=== PATIENT | male | born 1990 | race Caucasian/White ===

== ENCOUNTER 2019-07-10 23:11 | Emergency (ER) | payer OTHER, SELFPAY ==
[2019-07-11 00:30] LABS: Absolute Lymphocytes (CBC) 1.4 K/uL (0.7-4.9); Basophils % 0.5 % (0-1.3); Hematocrit 45.6 % (39.6-49.0); Lymphocytes % 20.2 % (15.3-44.8); MPV 9.8 fL (7.6-11.3); RBC Red Blood Cell Count 5.22 M/uL (4.33-5.43)
[2019-07-11 00:31] LABS: Protime INR 0.94
[2019-07-11 00:47] LABS: ALT/SGPT 76 U/L (12-78); AST/SGOT 40 U/L (15-37); Albumin 3.8 g/dL (3.4-5.0); Alkaline Phosphatase 98 U/L (45-117); BUN Blood Urea Nitrogen 10 mg/dL (7-18); Bicarbonate 30 mmol/L (21-32); Bilirubin Direct < 0.1 mg/dL (0-0.2); Bilirubin Total 0.2 mg/dL (0.2-1.0); Glucose Level 99 mg/dL (74-106); Potassium 4.1 mmol/L (3.5-5.1); Protein, Total 7.7 g/dL (6.4-8.2); Sodium Level 138 mmol/L (136-145)
[2019-07-11 01:42] LABS: Urine Blood NEGATIVE (NEG); Urine Glucose NEGATIVE (NEG); Urine Protein NEGATIVE (NEG); Urine pH 8.5 (5.0-7.0)
[2019-07-11 02:27] LABS: Barbiturates NEGATIVE (NEGATIVE); Benzodiazepines POSITIVE (NEGATIVE); Cocaine POSITIVE (NEGATIVE); METHAMPHETAM POSITIVE (NEGATIVE); Methadone NEGATIVE (NEGATIVE); Opiates NEGATIVE (NEGATIVE); Phencyclidine NEGATIVE (NEGATIVE); THC Cannibis POSITIVE (NEGATIVE)
[2019-07-11] MEDS ORDERED: ACETAMINOPHEN 325 MG TABLET ONE (04:52)
--- NOTE | 2019-07-11 07:04 | EKG ---
Test Date: 2019-07-10 Test Time: 23:32:40 Engraver Picture: KENDALL MEASUREMENT RESULTS: Intervals: Rate: 85 AR: 126 QRSD: 72 QT: 358 QTc: 426 [place]: P: 65 AR: 126 QRS: 61 T: 60 INTERPRETIVE STATEMENTS: Normal sinus rhythm Normal ECG No previous ECG available for comparison Electronically Signed On 07-11-19 07:03:38 CDT by Ildefonso Velez
--- NOTE | 2019-07-11 09:25 | ER ---
Nurse's Notes [facility] Name: Lew Castañeda Age: 28 yrs Sex: Male : 1990 Arrival Date: 07/10/2019 Time: 23:33 Bed 17 Private MD: Diagnosis: Suicidal ideations Presentation: 07/10 23:42 Presenting complaint: Patient states: I lost my job today and my girlfriend. I wanted jb4 to get really drunk so I did but then fell asleep. When I woke up I was sober and went to get more alcohol. Then I thought to myself Fuck it I'm just going to kill myself. I took 3 fake Xanax. I do not currently have a plan to hurt myself or anyone else. Transition of care: patient was not received from another setting of care. Onset of symptoms was July 10, 2019. Risk Assessment: Do you want to hurt yourself or someone else? Patient reports no desire to harm self or others. Initial Sepsis Screen: Does the patient meet any 2 criteria? No. Patient's initial sepsis screen is negative. Does the patient have a suspected source of infection? No. Patient's initial sepsis screen is negative. Care prior to arrival: None. 23:42 Method Of Arrival: Law Enforcement: Josue liu 23:42 Acuity: ROGER 2 jb4 23:43 Presenting complaint:. Historical: - Allergies: 23:48 PENICILLINS; wh - Home Meds: 23:48 Albuterol Nebulizer [Active]; wh - PMHx: 23:48 Asthma; - PSHx: 23:48 None; wh - Immunization history:: Adult Immunizations not up to date. - Social history:: Smoking status: Patient uses street drugs, marijuana. - Ebola Screening: : Patient negative for fever greater than or equal to 101.5 degrees Fahrenheit, and additional compatible Ebola Virus Disease symptoms Patient denies exposure to infectious person. Screenin:45 Abuse screen: Denies threats or abuse. Denies injuries from another. Nutritional screening: No deficits noted. Tuberculosis screening: No symptoms or risk factors identified. Fall Risk None identified. Assessment: 23:48 General: Appears in no apparent distress. Behavior is calm, cooperative, appropriate wh for age. Pain: Denies pain. Neuro: Level of Consciousness is awake, alert, obeys commands, Oriented to person, place, time, situation, Appropriate for age. Cardiovascular: Heart tones S1 S2. Respiratory: Airway is patent Respiratory effort is even, unlabored, Respiratory pattern is regular, symmetrical, Breath sounds are clear bilaterally. GI: Abdomen is flat, non-distended. : No signs and/or symptoms were reported regarding the genitourinary system. EENT: No signs and/or symptoms were reported regarding the EENT system. Derm: Skin is intact, is healthy with good turgor, Skin is pink, warm \T\ dry. normal. Musculoskeletal: Circulation, motion, and sensation intact. 07/11 00:32 Reassessment: Patient appears in no apparent distress at this time. No changes from previously documented assessment. Patient and/or family updated on plan of care and expected duration. Pain level reassessed. Patient is alert, oriented x 3, equal unlabored respirations, skin warm/dry/pink. 01:41 Reassessment: Patient appears in no apparent distress at this time. No changes from wh previously documented assessment. Patient and/or family updated on plan of care and expected duration. Pain level reassessed. Patient is alert, oriented x 3, equal unlabored respirations, skin warm/dry/pink. Patient denies pain at this time. 03:16 Reassessment: Patient appears in no apparent distress at this time. No changes from previously documented assessment. Patient and/or family updated on plan of care and expected duration. Pain level reassessed. Patient is alert, oriented x 3, equal unlabored respirations, skin warm/dry/pink. Patient denies pain at this time. 04:24 Reassessment: Patient appears in no apparent distress at this time. No changes from wh previously documented assessment. Patient and/or family updated on plan of care and expected duration. Pain level reassessed. Patient is alert, oriented x 3, equal unlabored respirations, skin warm/dry/pink. Pt watching Tv Patient denies pain at this time. 06:04 Reassessment: Patient appears in no apparent distress at this time. No changes from previously documented assessment. Patient and/or family updated on plan of care and expected duration. Pain level reassessed. Patient is alert, oriented x 3, equal unlabored respirations, skin warm/dry/pink. Pt watching Tv Patient denies pain at this time. 06:20 Reassessment: DOYLE Streeter [facility] requesting H\T\P and exclusionary be faxed, Judith Desk Sec wh notified. 07:00 Reassessment: Patient appears in no apparent distress at this time. No changes from tw2 previously documented assessment. Patient and/or family updated on plan of care and expected duration. Pain level reassessed. Patient is alert, oriented x 3, equal unlabored respirations, skin warm/dry/pink. Neuro: Level of Consciousness is awake, alert, obeys commands, Oriented to person, place, time, situation. Cardiovascular: Denies chest pain, shortness of breath, Heart tones S1 S2 Capillary refill < 3 seconds Patient's skin is warm and dry. Musculoskeletal: Circulation, motion, and sensation intact. Range of motion: intact in all extremities. 09:30 Reassessment: Patient appears in no apparent distress at this time. No changes from tw2 previously documented assessment. Patient and/or family updated on plan of care and expected duration. Pain level reassessed. Patient is alert, oriented x 3, equal unlabored respirations, skin warm/dry/pink. Psych: 00:33 Subjective: Patient's mood is sad. Objective: Patient is cooperative. Interventions: wh Removed personal items and placed in bag. Patient placed in hospital gown. Searched person for dangerous items. Urine collected and sent for urine drug test. Belonging list filled out. Suicide Risk Assessment: Sad Person Scale: Sex of patient: Male: Score 1 point. Age of patient: Score 1 point if patient 15-34. Depression: Score 0 point if signs of depression are not present. Previous Attempt: Score 0 point if patient has not previously attempted suicide. Substance Abuse: Score 1 point if patient abuses alcohol or drugs. Rational Thinking: Score 0 point if patient has rational thinking. Organized Plan: Score 0 if patient did not have an organized plan in place. Safety Checks: Personal items have been removed. Door is open. No visitors are present at this time. Patient uses marijuana. Commitment: Patient will be a voluntary commitment. Vital Signs: 07/10 23:42 BP 164 / 106; Pulse 84; Resp 16; Temp 98.5(TE); Pulse Ox 100% on R/A; Weight 95.25 kg jb4 (R); Height 5 ft. 11 in. (180.34 cm); Pain 4/10; 07/11 04:00 BP 136 / 94; Pulse 80; Resp 18; Temp 98.5; Pulse Ox 99% on R/A; wh 07:10 BP 144 / 87; Pulse 103; Resp 16; Temp 97.8(O); Pulse Ox 100% on R/A; dh3 07/10 23:42 Body Mass Index 29.29 (95.25 kg, 180.34 cm) jb4 ED Course: 07/10 23:33 Patient arrived in ED. wh 23:39 Jurgen Devine MD is Attending Physician. tw4 23:43 Lorna Keyes is Primary Nurse. wh 23:45 Triage completed. jb4 23:48 Patient has correct armband on for positive identification. Placed in gown. Bed in low wh position. Call light in reach. Side rails up X 1. Sitter at bedside. 23:48 Arm band placed on. wh 07/11 00:00 Safety checks: Items removed: yes. Door open/sign placed on door: yes. Family/friend oe present: no. Sitter present: Yes. 00:15 Safety checks: Items removed: yes. Door open/sign placed on door: yes. Family/friend oe present: no. Sitter present: Yes. 00:30 Safety checks: Items removed: yes. Door open/sign placed on door: yes. Family/friend oe present: no. Sitter present: Yes. 00:45 Safety checks: Items removed: yes. Door open/sign placed on door: yes. Family/friend oe present: no. Sitter present: Yes. 01:00 Safety checks: Items removed: yes. Door open/sign placed on door: yes. Family/friend oe present: no. Sitter present: Yes. 01:15 Safety checks: Items removed: yes. Door open/sign placed on door: yes. Family/friend oe present: no. Sitter present: Yes. 01:30 Safety checks: Items removed: yes. Door open/sign placed on door: yes. Family/friend oe present: no. Sitter present: Yes. 01:45 Safety checks: Items removed: yes. Door open/sign placed on door: yes. Family/friend oe present: no. Sitter present: Yes. 02:00 Safety checks: Items removed: yes. Door open/sign placed on door: yes. Family/friend oe present: no. Sitter present: Yes. 02:00 Faxed chart to [facility]. mo 02:15 Safety checks: Items removed: yes. Door open/sign placed on door: yes. Family/friend oe present: no. Sitter present: Yes. 02:30 Safety Checks: Personal items have been removed. The door is open or patient has been wh placed in a hallway bed/chair. There are no family/friend visitors at this time Sitter present at this time. 02:45 Safety Checks: Personal items have been removed. The door is open or patient has been wh placed in a hallway bed/chair. There are no family/friend visitors at this time Sitter present at this time. 03:00 Safety Checks: Personal items have been removed. The door is open or patient has been wh placed in a hallway bed/chair. There are no family/friend visitors at this time Sitter present at this time. 03:15 Safety Checks: Personal items have been removed. The door is open or patient has been wh placed in a hallway bed/chair. There are no family/friend visitors at this time Sitter present at this time. 03:30 Safety Checks: Personal items have been removed. The door is open or patient has been wh placed in a hallway bed/chair. There are no family/friend visitors at this time Sitter present at this time. 03:45 Safety Checks: Personal items have been removed. The door is open or patient has been wh placed in a hallway bed/chair. There are no family/friend visitors at this time Sitter present at this time. 04:00 Safety Checks: Personal items have been removed. The door is open or patient has been wh placed in a hallway bed/chair. There are no family/friend visitors at this time Sitter present at this time. 04:15 Safety Checks: Personal items have been removed. The door is open or patient has been wh placed in a hallway bed/chair. There are no family/friend visitors at this time Sitter present at this time. 04:30 Safety Checks: Personal items have been removed. The door is open or patient has been wh placed in a hallway bed/chair. There are no family/friend visitors at this time Sitter present at this time. 04:45 Safety Checks: Personal items have been removed. The door is open or patient has been wh placed in a hallway bed/chair. There are no family/friend visitors at this time Sitter present at this time. 05:00 Safety Checks: Personal items have been removed. The door is open or patient has been wh placed in a hallway bed/chair. There are no family/friend visitors at this time Sitter present at this time. 05:15 Safety Checks: Personal items have been removed. The door is open or patient has been wh placed in a hallway bed/chair. There are no family/friend visitors at this time Sitter present at this time. 05:30 Safety Checks: Personal items have been removed. The door is open or patient has been wh placed in a hallway bed/chair. There are no family/friend visitors at this time Sitter present at this time. 05:45 Safety Checks: Personal items have been removed. The door is open or patient has been wh placed in a hallway bed/chair. There are no family/friend visitors at this time Sitter present at this time. 06:00 Safety Checks: Personal items have been removed. The door is open or patient has been wh placed in a hallway bed/chair. There are no family/friend visitors at this time Sitter present at this time. 06:15 Safety Checks: Personal items have been removed. The door is open or patient has been wh placed in a hallway bed/chair. There are no family/friend visitors at this time Sitter present at this time. 06:17 Nurse to Nurse with [facility]. mo 06:24 Sent exclusionary to [facility]. mo 06:30 Safety Checks: Personal items have been removed. The door is open or patient has been wh placed in a hallway bed/chair. There are no family/friend visitors at this time Sitter present at this time. 06:45 Safety Checks: Personal items have been removed. The door is open or patient has been wh placed in a hallway bed/chair. There are no family/friend visitors at this time Sitter present at this time. 07:00 Safety checks: Items removed: yes. Door open/sign placed on door: yes. Family/friend dh3 present: no. Sitter present: Yes. 07:02 Attending Physician role handed off by Jurgen Devine MD kdr 07:02 Rasta Mahmood MD is Attending Physician. kdr 07:08 Primary Nurse role handed off by Lorna Keyes tw2 07:08 Annamarie Wilson, LSAHA is Primary Nurse. tw2 07:15 Safety checks: Items removed: yes. Door open/sign placed on door: yes. Family/friend dh3 present: no. Sitter present: Yes. 07:30 Safety checks: Items removed: yes. Door open/sign placed on door: yes. Family/friend dh3 present: no. Sitter present: Yes. 07:45 Safety checks: Items removed: yes. Door open/sign placed on door: yes. Family/friend dh3 present: no. Sitter present: Yes. 08:00 Safety checks: Items removed: yes. Door open/sign placed on door: yes. Family/friend dh3 present: no. Sitter present: Yes. 08:15 Safety checks: Items removed: yes. Door open/sign placed on door: yes. Family/friend dh3 present: no. Sitter present: Yes. 08:30 Safety checks: Items removed: yes. Door open/sign placed on door: yes. Family/friend dh3 present: no. Sitter present: Yes. 08:45 Safety checks: Items removed: yes. Door open/sign placed on door: yes. Family/friend dh3 present: no. Sitter present: Yes. 08:55 Diet: Patient given a regular meal tray. dh3 09:00 Safety checks: Items removed: yes. Door open/sign placed on door: yes. Family/friend dh3 present: no. Sitter present: Yes. 09:15 Safety checks: Items removed: yes. Door open/sign placed on door: yes. Family/friend dh3 present: no. Sitter present: Yes. 09:30 No provider procedures requiring assistance completed. IV discontinued, intact, tw2 bleeding controlled, No redness/swelling at site. Pressure dressing applied, discontinued 22 g from RIGHT ac. Administered Medications: 04:54 Drug: Tylenol 650 mg Route: PO; wh 06:59 Follow up: Response: No adverse reaction Outcome: 09:24 Discharge ordered by . kdr 09:31 Discharged to home ambulatory. tw2 09:31 Condition: stable 09:31 Instructed on discharge instructions. :33 Patient left the ED. tw2 Signatures: Rasta Mahmood MD MD [facility] Annamarie Wilson RN RN tw2 Baldomero Mak RN RN jb4 Isaias Desir Moriah mt Herrera, Deanna 3 Lorna Keyes Terrence, MD MD tw4 Corrections: (The following items were deleted from the chart) 00:54 00:42 Safety checks: Items removed: yes. Door open/sign placed on door: yes. oe Family/friend present: no. Sitter present: Yes. oe 01:04 00:54 Safety checks: Items removed: yes. Door open/sign placed on door: yes. oe Family/friend present: no. Sitter present: Yes. oe 01:30 01:10 Safety checks: Items removed: yes. Door open/sign placed on door: yes. oe Family/friend present: no. Sitter present: Yes. oe 08:35 07:45 Safety checks: Items removed: [email or web address]
--- NOTE | 2019-07-11 09:26 | EDPHYS ---
Physician Documentation [facility] Name: Lew Castañeda Age: 28 yrs Sex: Male : 1990 Arrival Date: 07/10/2019 Time: 23:33 Bed 17 Private MD: ED Physician Rasta Mahmood HPI: 07/11 06:06 This 28 yrs old Male presents to ER via Law Enforcement with complaints of tw4 Psych Problem. 06:06 The patient presents to the emergency department with suicide ideation, but the patient tw4 has no formulated plan. Historical: - Allergies: 07/10 23:48 PENICILLINS; wh - Home Meds: 23:48 Albuterol Nebulizer [Active]; wh - PMHx: 23:48 Asthma; wh - PSHx: 23:48 None; wh - Immunization history:: Adult Immunizations not up to date. - Social history:: Smoking status: Patient uses street drugs, marijuana. - Ebola Screening: : Patient negative for fever greater than or equal to 101.5 degrees Fahrenheit, and additional compatible Ebola Virus Disease symptoms Patient denies exposure to infectious person. ROS: 07/11 06:19 Constitutional: Negative for fever, chills, and weight loss, Cardiovascular: Negative tw4 for chest pain, palpitations, and edema, Respiratory: Negative for shortness of breath, cough, wheezing, and pleuritic chest pain, Abdomen/GI: Negative for abdominal pain, nausea, vomiting, diarrhea, and constipation, Back: Negative for injury and pain, MS/Extremity: Negative for injury and deformity, Skin: Negative for injury, rash, and discoloration, Neuro: Negative for headache, weakness, numbness, tingling, and seizure. Psych: Positive for depression, suicidal ideation, Negative for anxiety, suicidal ideation. Exam: 06:19 Constitutional: This is a well developed, well nourished patient who is awake, alert, tw4 and in no acute distress. Head/Face: Normocephalic, atraumatic. Chest/axilla: Normal chest wall appearance and motion. Nontender with no deformity. No lesions are appreciated. Cardiovascular: Regular rate and rhythm with a normal S1 and S2. No gallops, murmurs, or rubs. Normal PMI, no JVD. No pulse deficits. Respiratory: Lungs have equal breath sounds bilaterally, clear to auscultation and percussion. No rales, rhonchi or wheezes noted. No increased work of breathing, no retractions or nasal flaring. Abdomen/GI: Soft, non-tender, with normal bowel sounds. No distension or tympany. No guarding or rebound. No evidence of tenderness throughout. Back: No spinal tenderness. No costovertebral tenderness. Full range of motion. MS/ Extremity: Pulses equal, no cyanosis. Neurovascular intact. Full, normal range of motion. Neuro: Awake and alert, GCS 15, oriented to person, place, time, and situation. Cranial nerves II-XII grossly intact. Motor strength 5/5 in all extremities. Sensory grossly intact. Cerebellar exam normal. Normal gait. 06:19 Psych: Behavior/mood is pleasant, cooperative, Affect is flat, Oriented to person, place, only. Patient having thoughts of suicide. Denies suicidal plan. Vital Signs: 07/10 23:42 BP 164 / 106; Pulse 84; Resp 16; Temp 98.5(TE); Pulse Ox 100% on R/A; Weight 95.25 kg jb4 (R); Height 5 ft. 11 in. (180.34 cm); Pain /; 07/11 04:00 BP 136 / 94; Pulse 80; Resp 18; Temp 98.5; Pulse Ox 99% on R/A; wh 07:10 BP 144 / 87; Pulse 103; Resp 16; Temp 97.8(O); Pulse Ox 100% on R/A; dh3 07/10 23:42 Body Mass Index 29.29 (95.25 kg, 180.34 cm) jb4 MDM: 07/10 23:39 Patient medically screened. tw4 07/11 09:25 Data reviewed: vital signs, nurses notes, lab test result(s), radiologic studies. kdr Counseling: I had a detailed discussion with the patient and/or guardian regarding: the historical points, exam findings, and any diagnostic results supporting the discharge/admit diagnosis, lab results, the need for outpatient follow up. ED course: The patient denies any current SI. He has no prior suicide attempts. He states that he was just talking back to his mom and aunt when he became flippant and stated that he was going ot shoot himself in head. He sates that he has already sold his gun. The psychotherapist social worker who evaluated the patient did not feel there was any evidence current to warrant in-patient evaluation. The patient currently has a psychiatrist and was also given additional resources. 07/10 23:39 Order name: Acetaminophen; Complete Time: 07:06 tw4 07/10 23:39 Order name: Basic Metabolic Panel; Complete Time: 07:06 tw4 07/10 23:39 Order name: CBC with Diff; Complete Time: 07:06 tw4 07/10 23:39 Order name: ETOH Level; Complete Time: 07:06 tw4 07/10 23:39 Order name: Hepatic Function; Complete Time: 07:06 tw4 07/10 23:39 Order name: PT-INR; Complete Time: 07:06 tw4 07/10 23:39 Order name: Ptt, Activated; Complete Time: 07:06 4 07/10 23:39 Order name: Salicylate; Complete Time: 07:06 tw4 07/10 23:39 Order name: Urine Drug Screen; Complete Time: 07:06 tw4 07/10 23:39 Order name: EKG; Complete Time: 23:40 tw4 07/10 23:39 Order name: EKG - Nurse/Tech; Complete Time: 00:08 tw4 07/11 01:26 Order name: Urine Dipstick--Ancillary (enter results); Complete Time: 07:06 oe 07/11 07:03 Order name: Diet Regular; Complete Time: 07:04 dh3 07/10 23:39 Order name: IV Saline Lock; Complete Time: 00:08 tw4 07/10 23:39 Order name: Labs collected and sent; Complete Time: 00:08 tw4 07/10 23:39 Order name: Urine Dipstick-Ancillary (obtain specimen); Complete Time: 01:17 tw4 Administered Medications: 04:54 Drug: Tylenol 650 mg Route: PO; 06:59 Follow up: Response: No adverse reaction Disposition: 07/11/19 09:24 Discharged to Home. Impression: Suicidal ideations. - Condition is Stable. - Discharge Instructions: Suicidal Feelings: How to Help Yourself. - Medication Reconciliation Form, Thank You Letter, SBAR form form. - Follow up: Private Physician; When: 2 - 3 days; Reason: If symptoms return, Further diagnostic work-up, Recheck today's complaints, Continuance of care, Re-evaluation by your physician. - Problem is new. - Symptoms are resolved. Signatures: Dispatcher [employer] Rasta Abreu MD MD kdr Annamarie Wilson RN RN tw2 Lorna Keyes Terrence, MD MD tw4 Corrections: (The following items were deleted from the chart) 09:33 09:24 07/11/2019 09:24 Discharged to Home. Impression: Suicidal ideations. Condition is tw2 Stable. Forms are SBAR form, Medication Reconciliation Form, Thank You Letter, Antibiotic Education, Prescription Opioid Use. Follow up: Private Physician; When: 2 - 3 days; Reason: If symptoms return, Further diagnostic work-up, Recheck today's complaints, Continuance of care, Re-evaluation by your physician. Problem is new. Symptoms are resolved. kdr
[2019-07-11 09:44] VITALS: BP 144/87; TEMP 97.8; O2SAT 100
== END 2019-07-11 09:33 | disposition home or self-care (01) ==
LOC: ER 23:11
DX: R45.851 Suicidal ideations (principal); J45.909 Unspecified asthma, uncomplicated; Z88.0 Allergy status to penicillin
CPT/HCPCS: 36415; 80048; 80076; 80307; 80320; 80329; 81003; 85025; 85610; 85730; 93005; 99284

== ENCOUNTER 2021-03-04 19:37 | Emergency (ER) | payer SELFPAY ==
[2021-03-04] MEDS ORDERED: LEVALBUTEROL 1.25 MG/3 ML NEB ONE (20:49)
[2021-03-04] MEDS ORDERED: dexAMETHasone 10 MG/ML VIAL ONE (20:49)
--- NOTE | 2021-03-04 20:58 | ER ---
Nurse's Notes [facility] Name: Lew Castañeda Age: 30 yrs Sex: Male : 1990 Arrival Date: 03/04/2021 Time: 19:37 Bed 8 Private MD: Diagnosis: Unspecified asthma with (acute) exacerbation Presentation: 03/04 19:54 Chief complaint: Patient states: cough and SOB x 6 days. HX of asthma. Been using ca1 inhaler and breathing treatment with some relief. Covid testing yesterday, result was negative. Coronavirus screen: Client denies travel out of the [place] in the last 14 days. cough unrelated to allergies, shortness of breath, Client presents with at least one sign or symptom that may indicate coronavirus-19. Standard/surgical mask placed on the client. Provider contacted for isolation considerations. The client reports previous COVID testing was negative. Date of collection: March 03, 2021. Ebola Screen: Patient negative for fever greater than or equal to 101.5 degrees Fahrenheit, and additional compatible Ebola Virus Disease symptoms Patient denies exposure to infectious person. Patient denies travel to an Ebola-affected area in the 21 days before illness onset. No symptoms or risks identified at this time. Initial Sepsis Screen: Does the patient meet any 2 criteria? No. Patient's initial sepsis screen is negative. Does the patient have a suspected source of infection? No. Patient's initial sepsis screen is negative. Risk Assessment: Do you want to hurt yourself or someone else? Patient reports no desire to harm self or others. Onset of symptoms was March 04, 2021. 19:54 Method Of Arrival: Ambulatory ca1 19:54 Acuity: ROGER 3 ca1 Historical: - Allergies: 19:56 PENICILLINS; ca1 - PMHx: 19:56 Asthma; ca1 - PSHx: 19:56 None; ca1 - Immunization history:: Client reports having NOT received the Covid vaccine. Flu vaccine is not up to date. - Social history:: Smoking status: Patient denies any tobacco usage or history of. Screenin:00 Abuse screen: Denies threats or abuse. Nutritional screening: No deficits noted. ea Tuberculosis screening: No symptoms or risk factors identified. Fall Risk None identified. Assessment: 21:00 General: Appears in no apparent distress. Behavior is calm, cooperative, appropriate ea for age. Pain: Denies pain. Neuro: Level of Consciousness is awake, alert, obeys commands, Oriented to person, place, time. Cardiovascular: Patient's skin is warm and dry. Respiratory: Airway is patent Respiratory effort is even, unlabored, Respiratory pattern is regular, symmetrical. Derm: Skin is pink, warm \T\ dry. 21:28 Reassessment: Patient and/or family updated on plan of care and expected duration. Pain ea level reassessed. Patient is alert, oriented x 3, equal unlabored respirations, skin warm/dry/pink. Discharge instruction given to patient verbalized the understanding of instruction Patient states feeling better. Vital Signs: 19:54 BP 157 / 118; Pulse 109; Resp 18 S; Temp 99.1; Pulse Ox 98% on R/A; Weight 97.52 kg ca1 (R); Height 6 ft. 0 in. (182.88 cm) (R); 21:15 BP 150 / 86; Pulse 99; Resp 18; Pulse Ox 99% ; ea 19:54 Body Mass Index 29.16 (97.52 kg, 182.88 cm) ca1 ED Course: 19:37 Patient arrived in ED. bp1 19:56 Triage completed. ca1 19:56 Arm band placed on left wrist. ca1 20:22 Mo Santiago PA is PHCP. jmm 20:22 Christiano Boyer MD is Attending Physician. jmm 20:36 Abdelrahman Crawford RN is Primary Nurse. rr5 21:00 Patient has correct armband on for positive identification. Bed in low position. Call ea light in reach. 21:28 No provider procedures requiring assistance completed. Patient did not have IV access ea during this emergency room visit. Administered Medications: 20:36 Drug: Decadron (dexamethasone) 10 mg Route: IM; Site: right deltoid; rr5 21:15 Follow up: Response: No adverse reaction ea 20:36 Drug: Xopenex (levalbuterol) (3) 1.25 mg Route: Inhalation; rr5 Outcome: 20:57 Discharge ordered by . m 21:28 Discharged to home ambulatory. ea 21:28 Condition: stable 21:28 Discharge instructions given to patient, Instructed on discharge instructions, follow up and referral plans. medication usage, Demonstrated understanding of instructions, follow-up care, medications, Prescriptions given X 3. 21:29 Patient left the ED. ea Signatures: Mo Santiago PA PA jmm Antunez, Elena, RN RN Abdelrahman Lott, RN RN rr5 Aminta Senior RN RN ca1 Jerrica Blue
--- NOTE | 2021-03-04 20:58 | EDPHYS ---
Physician Documentation [facility] Name: Lew Castañeda Age: 30 yrs Sex: Male : 1990 Arrival Date: 03/04/2021 Time: 19:37 Bed 8 Private MD: ED Physician Christiano Boyer HPI: 03/04 20:26 This 30 yrs old Male presents to ER via Ambulatory with complaints of jmm Breathing Difficulty. 20:26 The patient has shortness of breath at rest. Onset: The symptoms/episode began/occurred jmm gradually, 6 day(s) ago. Duration: The symptoms are continuous. The patient's shortness of breath is aggravated by nothing, is alleviated by nothing. Associated signs and symptoms: Pertinent negatives: fever, loss of consciousness. This is a 30 year old male with a history of asthma that presents to the ED with complaints of cough, shortness of breath, wheezing beginning this Tuesday. States having to use albuterol every 2 hours. . Historical: - Allergies: 19:56 PENICILLINS; ca1 - PMHx: 19:56 Asthma; ca1 - PSHx: 19:56 None; ca1 - Immunization history:: Client reports having NOT received the Covid vaccine. Flu vaccine is not up to date. - Social history:: Smoking status: Patient denies any tobacco usage or history of. ROS: 20:26 Constitutional: Negative for fever, chills, and weight loss, Cardiovascular: Negative jmm for chest pain, palpitations, and edema. 20:26 Respiratory: Positive for cough, wheezing. 20:26 All other systems are negative. Exam: 20:26 Constitutional: This is a well developed, well nourished patient who is awake, alert, jmm and in no acute distress. Head/Face: atraumatic. Eyes: EOMI, no conjunctival erythema appreciated ENT: Moist Mucus Membranes Neck: Trachea midline, Supple Chest/axilla: Normal chest wall appearance and motion. Cardiovascular: Regular rate and rhythm. No edema appreciated 20:26 Back: Normal ROM Skin: General appearance color normal MS/ Extremity: Moves all extremities, no obvious deformities appreciated, no edema noted to the lower extremities Neuro: Awake and alert, normal gait Psych: Behavior is normal, Mood is normal, Patient is cooperative and pleasant 20:26 Respiratory: mild respiratory distress is noted, Respirations: labored breathing, that is mild, Breath sounds: wheezing: that is moderate, is heard diffusely. Vital Signs: 19:54 BP 157 / 118; Pulse 109; Resp 18 S; Temp 99.1; Pulse Ox 98% on R/A; Weight 97.52 kg ca1 (R); Height 6 ft. 0 in. (182.88 cm) (R); 21:15 BP 150 / 86; Pulse 99; Resp 18; Pulse Ox 99% ; ea 19:54 Body Mass Index 29.16 (97.52 kg, 182.88 cm) ca1 MDM: 20:22 Patient medically screened. [facility] 20:55 Data reviewed: vital signs, nurses notes. Counseling: I had a detailed discussion with greg the patient and/or guardian regarding: the historical points, exam findings, and any diagnostic results supporting the discharge/admit diagnosis, the need for outpatient follow up, to return to the emergency department if symptoms worsen or persist or if there are any questions or concerns that arise at home. ED course: Decreased wheezing on reauscultation . Patient advised to follow up with pcp and otherwise given strict return precautions. patient understood and agrees with the plan of care. . Administered Medications: 20:36 Drug: Decadron (dexamethasone) 10 mg Route: IM; Site: right deltoid; rr5 21:15 Follow up: Response: No adverse reaction ea 20:36 Drug: Xopenex (levalbuterol) (3) 1.25 mg Route: Inhalation; rr5 Disposition: 03/05 04:55 Co-signature as Attending Physician, Christiano Boyer MD. rn Disposition: 03/04/21 20:57 Discharged to Home. Impression: Unspecified asthma with (acute) exacerbation. - Condition is Stable. - Discharge Instructions: Asthma, Adult. - Prescriptions for Prednisone 20 mg Oral Tablet - take 3 tablet by ORAL route once daily for 5 days; 15 tablet. Albuterol Sulfate 2.5 mg /3 mL (0.083 %) Inhalation Solution for Nebulization - inhale 1 unit by NEBULIZATION route every 8 hours As needed; 1 box. Albuterol Sulfate 90 mcg/actuation - inhale 1-2 puff by INHALATION route every 4-6 hours; 1 Inhaler. - Medication Reconciliation Form, Thank You Letter, Antibiotic Education, Prescription Opioid Use, Work release form form. - Follow up: Private Physician; When: 2 - 3 days; Reason: Recheck today's complaints, Continuance of care, Re-evaluation by your physician. Signatures: Mo Santiago PA PA jmm Nieto, Roman, MD MD rn Antunez, Elena RN Abdelrahman Dorantes ea RN RN rr5 Aminta Senior RN RN ca1 Corrections: (The following items were deleted from the chart) 03/04 21:29 20:57 03/04/2021 20:57 Discharged to Home. Impression: Unspecified asthma with (acute) ea exacerbation. Condition is Stable. Forms are Medication Reconciliation Form, Thank You Letter, Antibiotic Education, Prescription Opioid Use. Follow up: Private Physician; When: 2 - 3 days; Reason: Recheck today's complaints, Continuance of care, Re-evaluation by your physician. greg
[2021-03-04 22:02] VITALS: TEMP 99.1
[2021-03-04 22:07] VITALS: BP 150/86; O2SAT 99
== END 2021-03-04 21:29 | disposition home or self-care (01) ==
LOC: ER 19:37
DX: J45.901 Unspecified asthma with (acute) exacerbation (principal); Z88.0 Allergy status to penicillin
CPT/HCPCS: J1100

== ENCOUNTER 2022-02-14 00:42 | Emergency (ER) | payer OTHER, SELFPAY ==
--- NOTE | 2022-02-14 05:40 | EDPHYS ---
Physician Documentation [facility] Name: Lew Castañeda Age: 31 yrs Sex: Male : 1990 Arrival Date: 02/14/2022 Time: 00:46 Bed 12 Private MD: ED Physician Christiano Boyer HPI: 02/14 00:56 This 31 yrs old Male presents to ER via Unassigned with complaints of Elbow Injury. rn 00:56 The patient or guardian complains of decreased range of motion, injury, pain. The rn complaints affect the left elbow and left wrist. Onset: The symptoms/episode began/occurred just prior to arrival. Modifying factors: The symptoms are alleviated by nothing. the symptoms are aggravated by movement, bending arm. Severity of symptoms: At their worst the symptoms were moderate, in the emergency department the symptoms are unchanged. The patient has not experienced similar symptoms in the past. The patient has not recently seen a physician. Pt reports at metal concert, fell, thinks outstretched arm, hurt his left elbow and left wrist. No other injury. . Historical: - Allergies: 01:11 PENICILLINS; fu - Home Meds: 01:11 Albuterol Inhl [Active]; fu - PMHx: 01:11 Asthma; fu - Immunization history:: Adult Immunizations not immunized, Client reports having NOT received the Covid vaccine. - Social history:: Smoking status: Patient reports the use of cigarette tobacco products, unknown Patient uses marijuana. - Family history:: not pertinent. - Hospitalizations: : No recent hospitalization is reported. ROS: 00:56 MS/Extremity: + left elbow and wrist pain/injury Skin: Negative for injury, rash, and rn discoloration, Neuro: Negative for headache, weakness, numbness, tingling, and seizure. Exam: 00:56 Constitutional: This is a well developed, well nourished patient who is awake, alert, rn and in no acute distress. MS/ Extremity: Pulses equal, no cyanosis. Neurovascular intact. Painful ROM left elbow with midl swelling. + mild tenderness distal radius. No gross deformity noted. Vital Signs: 01:02 BP 140 / 93; Pulse 109; Resp 18; Temp 98.5; Pulse Ox 99% on R/A; Pain 5/10; fu 02:30 BP 138 / 86; Pulse 95; Resp 16; Pulse Ox 98% on R/A; fu 04:35 BP 139 / 76; Pulse 98; Resp 16; Pulse Ox 99% on R/A; Pain 0/10; fu MDM: 00:49 Patient medically screened. rn 04:15 ED course: Delay due to radiology, xray machine down. rn 05:39 Differential diagnosis: closed fracture, contusion. Data reviewed: vital signs, nurses rn notes, and as a result, I will discharge patient. Counseling: I had a detailed discussion with the patient and/or guardian regarding: the historical points, exam findings, and any diagnostic results supporting the discharge/admit diagnosis, the need for outpatient follow up, to return to the emergency department if symptoms worsen or persist or if there are any questions or concerns that arise at home. Response to treatment: the patient's symptoms have mildly improved after treatment, and as a result, I will discharge patient. ED course: Pt is tired of waiting, still no radiology reads, has been here for unacceptable 5 hours waiting on radiology, will place in sling and dc home, will have day shift f/u xrays and contact patient. . 02/14 00:55 Order name: XRAY Elbow LEFT 3 view rn 02/14 00:55 Order name: XRAY Forearm LEFT rn 02/14 00:55 Order name: XRAY Wrist LEFT 3 view rn Administered Medications: No medications were administered Disposition Summary: 02/14/22 05:40 Discharge Ordered Location: Home rn Problem: new rn Symptoms: have improved rn Condition: Stable rn Diagnosis - Contusion of left elbow rn - Contusion of left wrist rn Followup: rn - With: Private Physician - When: As needed - Reason: Recheck today's complaints, Re-evaluation by your physician Discharge Instructions: - Discharge Summary Sheet rn - Elbow Contusion rn Forms: - Medication Reconciliation Form rn - Thank You Letter rn - Antibiotic wedding planning internship - Prescription Opioid Use rn - Work release form fu Signatures: Dispatcher [employer] Christiano Lemons MD MD rn Umadhay, Felix, RN RN fu
--- NOTE | 2022-02-14 05:40 | ER ---
Nurse's Notes [facility] Name: Lew Castañeda Age: 31 yrs Sex: Male : 1990 Arrival Date: 02/14/2022 Time: 00:46 Bed 12 Private MD: Diagnosis: Contusion of left elbow;Contusion of left wrist Presentation: 02/14 01:02 Chief complaint: Patient states: Injured left elbow due to fall. Coronavirus screen: fu Vaccine status: Patient reports being unvaccinated. had COVID last Jaubuary. Ebola Screen: No symptoms or risks identified at this time. Initial Sepsis Screen: Does the patient meet any 2 criteria? No. Patient's initial sepsis screen is negative. Does the patient have a suspected source of infection? No. Patient's initial sepsis screen is negative. Risk Assessment: Do you want to hurt yourself or someone else? Patient reports no desire to harm self or others. Onset of symptoms was February 14, 2022 at 00:00. 01:02 Method Of Arrival: Ambulatory fu 01:02 Acuity: ROGER 4 fu Triage Assessment: 01:06 General: Appears in no apparent distress. Behavior is calm, cooperative, appropriate fu for age. Pain: Complains of pain in left wrist and left elbow Pain currently is 5 out of 10 on a pain scale. Aggravated by movement. Musculoskeletal: Swelling present in left elbow. Historical: - Allergies: 01:11 PENICILLINS; fu - Home Meds: 01:11 Albuterol Inhl [Active]; fu - PMHx: 01:11 Asthma; fu - Immunization history:: Adult Immunizations not immunized, Client reports having NOT received the Covid vaccine. - Social history:: Smoking status: Patient reports the use of cigarette tobacco products, unknown Patient uses marijuana. - Family history:: not pertinent. - Hospitalizations: : No recent hospitalization is reported. Screenin:09 Abuse screen: Denies threats or abuse. Nutritional screening: No deficits noted. fu Tuberculosis screening: No symptoms or risk factors identified. Fall Risk None identified. Assessment: 01:07 General: Appears in no apparent distress. Behavior is calm, cooperative, appropriate fu for age, Denies fever, feeling ill, fatigue, chills. Pain: Complains of pain in left wrist and left elbow Pain currently is 5 out of 10 on a pain scale. Aggravated by movement. Neuro: Level of Consciousness is awake, alert, obeys commands, Oriented to person, place, time, situation, Gait is steady, Speech is normal, Facial symmetry appears normal. Respiratory: Respiratory effort is even, unlabored, Respiratory pattern is regular. Derm: swelling noted to left elbow. Musculoskeletal: Range of motion: limited in left wrist and left elbow. 02:00 Reassessment: No changes from previously documented assessment. Patient and/or family fu updated on plan of care and expected duration. Pain level reassessed. 03:00 Reassessment: Patient and/or family updated on plan of care and expected duration. Pain fu level reassessed. 04:15 Reassessment: Dr. Boyer inside the patient 's room. fu 05:11 Reassessment: Patient and/or family updated on plan of care and expected duration. Pain fu level reassessed. Patient is alert, oriented x 3, equal unlabored respirations, skin warm/dry/pink. Vital Signs: 01:02 BP 140 / 93; Pulse 109; Resp 18; Temp 98.5; Pulse Ox 99% on R/A; Pain 5/10; fu 02:30 BP 138 / 86; Pulse 95; Resp 16; Pulse Ox 98% on R/A; fu 04:35 BP 139 / 76; Pulse 98; Resp 16; Pulse Ox 99% on R/A; Pain 0/10; fu ED Course: 00:46 Patient arrived in ED. bp1 00:49 Christiano Boyer MD is Attending Physician. rn 00:49 Tab Hernandez, LASHA is Primary Nurse. fu 01:06 Triage completed. fu 01:09 Patient has correct armband on for positive identification. Call light in reach. Pulse fu ox on. NIBP on. 05:55 Sling applied to left arm. fu 06:07 No provider procedures requiring assistance completed. Patient did not have IV access fu during this emergency room visit. 06:08 XRAY Elbow LEFT 3 view In Process Unspecified. EDMS 06:08 XRAY Forearm LEFT In Process Unspecified. EDMS 06:08 XRAY Wrist LEFT 3 view In Process Unspecified. EDMS Administered Medications: No medications were administered Medication: 05:00 VIS not applicable for this client. fu Outcome: 05:40 Discharge ordered by . rn 06:08 Discharged to home ambulatory. fu 06:08 Condition: stable 06:08 Discharge instructions given to patient, Instructed on discharge instructions, follow up and referral plans. Demonstrated understanding of instructions, follow-up care, Prescriptions given X 0 06:10 Patient left the ED. fu Signatures: Dispatcher [employer] EDChristiano Roper MD MD rn David, Tab RN RN Jerrica Remy Corrections: (The following items were deleted from the chart) 01:06 00:58 Chief complaint: fu mairely
[2022-02-14 06:20] VITALS: TEMP 98.5
[2022-02-14 06:23] VITALS: BP 139/76; O2SAT 99
--- NOTE | 2022-02-15 16:07 | RAD REPORT ---
EXAM DESCRIPTION: Forearm Left CLINICAL HISTORY: PAIN COMPARISON: None FINDINGS: There is a nondisplaced fracture extending to the radial neck with slight cortical step of f. No additional fracture or dislocation. No retained radiopaque foreign body. IMPRESSION: Nondisplaced radial neck fracture. RECOMMENDATIONS: Electronically signed by: Paul Chacko MD 02/14/2022 7:26 AM CDT Due to temporary technical issues with the PACS/Fluency reporting system, reports are being signed by the in house radiologists without review as a courtesy to insure prompt reporting. The interpreting radiologist is fully responsible for the content of the report.
--- NOTE | 2022-02-15 16:20 | RAD REPORT ---
EXAM DESCRIPTION: Elbow Left 3 View CLINICAL HISTORY: 31 years Male PAIN TECHNIQUE: Three x-ray views of the left elbow were performed on 02/14/2022 at 3:04 AM. COMPARISON: None FINDINGS: There is a nondisplaced fracture through the left radial neck. No additional fractures are identified. The elbow joint is intact. There are no lytic or sclerotic bone lesions. There are no de generative or arthritic changes. There is mild soft tissue swelling surrounding the left elbow. No nahomy int effusion is appreciated. Bone mineralization is normal. IMPRESSION: Nondisplaced fracture through the left radial neck. There is mild soft tissue swelling s urrounding the left elbow. Electronically signed by: Aide Villagran DO 02/14/2022 7:23 AM CDT Due to temporary technical issues with the PACS/Fluency reporting system, reports are being signed by the in house radiologists without review as a courtesy to insure prompt reporting. The interpreting radiologist is fully responsible for the content of the report.
--- NOTE | 2022-02-15 16:21 | RAD REPORT ---
EXAM DESCRIPTION: Wrist Left 3 View CLINICAL HISTORY: PAIN COMPARISON: None FINDINGS: No acute fracture or dislocation. The radiocarpal and intercarpal joint spaces are preserv ed. No erosive changes noted. No chondrocalcinosis appreciated. IMPRESSION: No acute osseous abnormality of the wrist. RECOMMENDATIONS: Electronically signed by: Paul Chacko MD 02/14/2022 7:26 AM CDT Due to temporary technical issues with the PACS/Fluency reporting system, reports are being signed by the in house radiologists without review as a courtesy to insure prompt reporting. The interpreting radiologist is fully responsible for the content of the report.
== END 2022-02-14 06:10 | disposition home or self-care (01) ==
LOC: ER 00:42
DX: S50.02XA Contusion of left elbow, initial encounter (principal); S60.212A Contusion of left wrist, initial encounter; W01.0XXA Fall on same level from slipping, tripping and stumbling without subsequent striking against object, initial encounter; Y93.89 Activity, other specified; Y92.89 Other specified places as the place of occurrence of the external cause; Z88.0 Allergy status to penicillin; J45.909 Unspecified asthma, uncomplicated
CPT/HCPCS: 99284

== ENCOUNTER 2022-03-22 14:40 | Emergency (ER) | payer OTHER ==
[2022-03-22] MEDS ORDERED: NA CHLORIDE 0.9% 1,000 ML ONE (15:55)
[2022-03-22 16:02] LABS: Absolute Lymphocytes (CBC) 2.1 K/uL (0.7-4.9); Lymphocytes % 20.9 % (15.3-44.8); MCV 86.9 fL (80-100); MPV 8.9 fL (7.6-11.3); RBC Red Blood Cell Count 5.53 M/uL (4.33-5.43)
[2022-03-22 16:19] LABS: Albumin 4.1 g/dL (3.4-5.0); Potassium 4.1 mmol/L (3.5-5.1)
[2022-03-22 16:25] LABS: Bilirubin Total 0.4 mg/dL (0.2-1.0); Protein, Total 8.4 g/dL (6.4-8.2)
--- NOTE | 2022-03-22 17:12 | RAD REPORT ---
EXAM DESCRIPTION: CT - Stone Protocol - 03/22/2022 4:23 pm CLINICAL HISTORY: flank pain, kidney stone COMPARISON: No comparisons TECHNIQUE: Axial 3 mm thick images were obtained without oral or IV contrast. The [id number] span s the entirety of the system including uppermost abdomen and lung bases. All CT scans are performed using dose optimization technique as appropriate and may include automated exposure control or mA/KV adjustment according to patient size. FINDINGS: No hydronephrosis is present and no obstructing ureteral calculi. No suspicious renal mass es. Isodense masses and pyelonephritis are not excluded on a stone protocol CT scan. No significant a drenal finding. Urinary bladder is mostly contracted. A 2-3 mm calcification is present near the blad estrellita prostate interface. This is the dependent portion of the bladder. This may represent a small blad estrellita stone. Imaged portions of the liver, spleen and pancreas show no suspicious findings on non-contrast imaging . No gallbladder or biliary tree abnormality identified. No suspicious bowel findings. No direct or indirect evidence for appendicitis. 2 centimeter fat only umbilical hernia present. Fat extends into the origin of each inguinal canal. N o free air, free fluid or inflammatory stranding. No significant bony abnormality. IMPRESSION: No hydronephrosis or obstructing calculus identified. No perinephric stranding seen. Pun ctate 1 mm calcifications seen lower pole calices on the left. A 2-3 mm calcification is present suspected to be a bladder calculus. This could be chronic or a rece ntly passed ureteral stone. Isodense masses and pyelonephritis are not excluded on stone protocol technique.
--- NOTE | 2022-03-22 17:30 | ER ---
Nurse's Notes [facility] Name: Lew Castañeda Age: 31 yrs Sex: Male : 1990 Arrival Date: 03/22/2022 Time: 14:42 Bed 12 Private MD: Diagnosis: Kidney Stone/ Calculus in bladder Presentation: 03/22 15:03 Chief complaint: Patient states: pt reports lower abdominal pain that radiates to left lao flank. Coronavirus screen: Vaccine status: Patient reports receiving the 2nd dose of the covid vaccine. Ebola Screen: Patient denies travel to an Ebola-affected area in the 21 days before illness onset. Initial Sepsis Screen: Does the patient meet any 2 criteria? No. Patient's initial sepsis screen is negative. Does the patient have a suspected source of infection? No. Patient's initial sepsis screen is negative. Risk Assessment: Do you want to hurt yourself or someone else?. Onset of symptoms was March 22, 2022. 15:03 Method Of Arrival: Ambulatory lao 15:03 Acuity: ROGER 3 lao Triage Assessment: 15:04 General: Appears in no apparent distress. distressed, Behavior is calm, cooperative. lao Pain: Complains of pain in left mid back and abdomen. Historical: - Allergies: 15:04 PENICILLINS; lao - Home Meds: 15:04 Albuterol Inhl [Active]; lao - PMHx: 15:04 Asthma; lao - Immunization history:: Adult Immunizations up to date. - Social history:: Patient uses street drugs, marijuana. Screenin:45 Abuse screen: Denies threats or abuse. Nutritional screening: No deficits noted. jb4 Tuberculosis screening: No symptoms or risk factors identified. Fall Risk None identified. Assessment: 15:45 General: Appears in no apparent distress. comfortable, Behavior is calm, cooperative, jb4 appropriate for age. Pain: Complains of pain in left low back Pain radiates to left lower quadrant Pain currently is 5 out of 10 on a pain scale. Neuro: Level of Consciousness is awake, alert, obeys commands, Oriented to person, place, time, situation. Cardiovascular: Patient's skin is warm and dry. Respiratory: Airway is patent Respiratory effort is even, unlabored, Respiratory pattern is regular, symmetrical. Derm: Skin is intact, Skin is pink, warm \T\ dry. Musculoskeletal: Circulation, motion, and sensation intact. Range of motion: intact in all extremities. 17:09 Reassessment: Patient appears in no apparent distress at this time. Patient and/or jb4 family updated on plan of care and expected duration. Pain level reassessed. Patient is alert, oriented x 3, equal unlabored respirations, skin warm/dry/pink. 17:52 Reassessment: Patient appears in no apparent distress at this time. Patient and/or jb4 family updated on plan of care and expected duration. Pain level reassessed. Patient is alert, oriented x 3, equal unlabored respirations, skin warm/dry/pink. Kidney stone noted in urine specimen cup, provider is aware. Vital Signs: 15:03 BP 148 / 94; Pulse 97; Resp 18; Temp 98.1(O); Pulse Ox 98% ; Weight 106.59 kg; Height 5 lao ft. 11 in. (180.34 cm); 17:52 BP 147 / 104; Pulse 78; Resp 16; Pulse Ox 98% on R/A; jb4 15:03 Body Mass Index 32.78 (106.59 kg, 180.34 cm) ED Course: 14:42 Patient arrived in ED. jj6 15:04 Triage completed. lao 15:04 Arm band placed on. lao 15:06 Gurdeep Julian NP is PHCP. pm1 15:06 Rasta Mahmood MD is Attending Physician. pm1 15:25 Baldomero Mak, LASHA is Primary Nurse. jb4 15:45 Patient has correct armband on for positive identification. Bed in low position. Call jb4 light in reach. Side rails up X 1. 15:45 No provider procedures requiring assistance completed. Initial lab(s) drawn, by ri, jb4 sent to lab. Inserted saline lock: 20 gauge in right antecubital area, using aseptic technique. Blood collected. 16:25 Stone Protocol In Process Unspecified. EDMS 17:52 IV discontinued, intact, bleeding controlled, No redness/swelling at site. Pressure jb4 dressing applied. Administered Medications: 15:52 Drug: NS 0.9% 1000 ml Route: IV; Rate: 1 bolus; Site: right antecubital; jb4 17:51 Follow up: Response: No adverse reaction; IV Status: Order to discontinue infusion; IV jb4 Intake: 500ml Medication: 15:45 VIS not applicable for this client. jb4 Intake: 17:51 IV: 500ml; Total: 500ml. jb4 Outcome: 17:30 Discharge ordered by . pm1 17:53 Discharged to home ambulatory. jb4 17:53 Condition: stable 17:53 Discharge instructions given to patient, Instructed on discharge instructions, follow up and referral plans. Demonstrated understanding of instructions, follow-up care. 17:53 Patient left the ED. jb4 Signatures: Dispatcher [employer] EDWA Gurdeep Julian NP PIC[employer]CH[employer]IC pm1 Baldomero Mak, RN RN jb4 Ivett Banksj6 Juany Trinidad RN RN lao Corrections: (The following items were deleted from the chart) 17:53 17:52 Reassessment: Patient appears in no apparent distress at this time. Patient jb4 and/or family updated on plan of care and expected duration. Pain level reassessed. Patient is alert, oriented x 3, equal unlabored respirations, skin warm/dry/pink. jb4
--- NOTE | 2022-03-22 17:30 | EDPHYS ---
Physician Documentation [facility] Name: Lew Castañeda Age: 31 yrs Sex: Male : 1990 Arrival Date: 03/22/2022 Time: 14:42 Bed 12 Private MD: ED Physician Rasta Mahmood HPI: 03/22 16:00 This 31 yrs old Male presents to ER via Ambulatory with complaints of Flank Pain, Low pm1 Back Pain. 16:00 The patient complains of pain in the left low back. The pain radiates to the left lower pm1 quadrant. Onset: The symptoms/episode began/occurred this morning. Modifying factors: The symptoms are alleviated by nothing. the symptoms are aggravated by nothing. Associated signs and symptoms: Pertinent negatives: dysuria, fever, nausea, vomiting. Severity of pain: in the emergency department the pain has resolved. The patient has not experienced similar symptoms in the past. The patient has not recently seen a physician. waxing and waning pain. Historical: - Allergies: 15:04 PENICILLINS; lao - Home Meds: 15:04 Albuterol Inhl [Active]; lao - PMHx: 15:04 Asthma; lao - Immunization history:: Adult Immunizations up to date. - Social history:: Patient uses street drugs, marijuana. ROS: 16:00 Constitutional: Negative for fever, chills, and weight loss, Cardiovascular: Negative pm1 for chest pain, palpitations, and edema, Respiratory: Negative for shortness of breath, cough, wheezing, and pleuritic chest pain, Abdomen/GI: Negative for abdominal pain, nausea, vomiting, diarrhea, and constipation. 16:00 : Negative for injury, bleeding, discharge, and swelling, MS/Extremity: Negative for injury and deformity, Skin: Negative for injury, rash, and discoloration, Neuro: Negative for headache, weakness, numbness, tingling, and seizure. 16:00 Back: Positive for flank pain, on the left. Exam: 16:00 Constitutional: This is a well developed, well nourished patient who is awake, alert, pm1 and in no acute distress. Head/Face: Normocephalic, atraumatic. 16:00 Skin: Warm, dry with normal turgor. Normal color with no rashes, no lesions, and no evidence of cellulitis. MS/ Extremity: Pulses equal, no cyanosis. Neurovascular intact. Full, normal range of motion. 16:00 Cardiovascular: Exam negative for acute changes, Rate: normal, Rhythm: regular, Pulses: no pulse deficits are appreciated, Heart sounds: normal, normal S1and S2. 16:00 Respiratory: Exam negative for acute changes, respiratory distress, shortness of breath, Breath sounds: are clear throughout. 16:00 Abdomen/GI: Inspection: abdomen appears normal, Palpation: abdomen is soft and non-tender, in all quadrants. 16:00 Back: Exam negative for acute changes, CVA tenderness, is absent. 16:00 Neuro: Exam negative for acute changes, Orientation: is normal, Mentation: is normal, Motor: is normal, moves all fours. Vital Signs: 15:03 BP 148 / 94; Pulse 97; Resp 18; Temp 98.1(O); Pulse Ox 98% ; Weight 106.59 kg; Height 5 lao ft. 11 in. (180.34 cm); 17:52 BP 147 / 104; Pulse 78; Resp 16; Pulse Ox 98% on R/A; jb4 15:03 Body Mass Index 32.78 (106.59 kg, 180.34 cm) lao MDM: 15:21 Patient medically screened. pm1 17:28 Data reviewed: vital signs. Data interpreted: Pulse oximetry: on room air is 98 %. pm1 Interpretation: normal. Counseling: I had a detailed discussion with the patient and/or guardian regarding: the historical points, exam findings, and any diagnostic results supporting the discharge/admit diagnosis, lab results, radiology results, the need for outpatient follow up, to return to the emergency department if symptoms worsen or persist or if there are any questions or concerns that arise at home. 18:33 ED course: Patient with urine sample that has calculus in the urine cup. Patient with pm1 CT result prior to sample that showed the stone in the bladder. 03/22 15:56 Order name: Stone Protocol; Complete Time: 17:25 EDMS 03/22 15:57 Order name: CBC with Automated Diff; Complete Time: 16:53 EDMS 03/22 15:57 Order name: Comprehensive Metabolic Panel; Complete Time: 16:53 EDMS 03/22 15:28 Order name: IV Saline Lock; Complete Time: 15:38 pm1 03/22 15:28 Order name: Labs collected and sent; Complete Time: 15:38 pm1 Administered Medications: 15:52 Drug: NS 0.9% 1000 ml Route: IV; Rate: 1 bolus; Site: right antecubital; jb4 17:51 Follow up: Response: No adverse reaction; IV Status: Order to discontinue infusion; IV jb4 Intake: 500ml Disposition Summary: 03/22/22 17:30 Discharge Ordered Location: Home pm1 Problem: new pm1 Symptoms: have improved pm1 Condition: Stable pm1 Diagnosis - Kidney Stone/ Calculus in bladder pm1 Followup: pm1 - With: Emergency Department - When: As needed - Reason: Worsening of condition Followup: pm1 - With: Private Physician - When: 2 - 3 days - Reason: Recheck today's complaints, Continuance of care, Re-evaluation by your physician Discharge Instructions: - Discharge Summary Sheet pm1 - Kidney Stones pm1 - Dietary Guidelines to Help Prevent Kidney Stones pm1 Forms: - Medication Reconciliation Form pm1 - Thank You Letter pm1 - Antibiotic Education pm1 - Prescription Opioid Use pm1 - Work release form eb Signatures: Dispatcher [employer] EDKS Gudreep Julian, BATSHEVA METAL EXPEDITER pm1 Baldomero Mak, RN RN jb4 Juany Trinidad RN RN lao Corrections: (The following items were deleted from the chart) 17:51 15:28 Urine Dipstick-Ancillary ordered. pm1 jb4
[2022-03-22 18:27] VITALS: TEMP 98.1; O2SAT 98
[2022-03-22 18:28] VITALS: BP 147/104
== END 2022-03-22 17:53 | disposition home or self-care (01) ==
LOC: ER 14:40
DX: N20.0 Calculus of kidney (principal); R10.32 Left lower quadrant pain; J45.909 Unspecified asthma, uncomplicated; Z88.0 Allergy status to penicillin
CPT/HCPCS: 96361; 85025; 36415; 80053; 76377; 74176; 96360; 99284; J7030

== ENCOUNTER 2023-04-20 08:35 | Emergency (ER) | payer OTHER ==
[2023-04-20] MEDS ORDERED: predniSONE 20 MG TAB ONE (09:10)
[2023-04-20] MEDS ORDERED: LEVALBUTEROL 1.25 MG/3 ML NEB ONE (09:10)
[2023-04-20 09:49] LABS: SARS-CoV-2 Antigen Rapid Res Positive (Negative)
--- NOTE | 2023-04-20 09:58 | RAD REPORT ---
EXAM DESCRIPTION: Elis Single View04/20/2023 9:47 am CLINICAL HISTORY: Cough COMPARISON: none FINDINGS: The lungs appear clear of acute infiltrate. The heart is normal size IMPRESSION: No acute abnormalities displayed
--- NOTE | 2023-04-20 10:06 | EDPHYS ---
Physician Documentation [facility] Name: Lew Castañeda Age: 32 yrs Sex: Male : 1990 Arrival Date: 04/20/2023 Time: 08:35 Bed 20 Private MD: ED Physician Christiano Boyer HPI: 04/20 08:59 This 32 yrs old Male presents to ER via Ambulatory with complaints of Shortness Of rn Breath. 08:59 The patient has shortness of breath at rest. Onset: The symptoms/episode began/occurred rn last night. Duration: The symptoms are intermittent. The patient's shortness of breath is aggravated by nothing, is alleviated by inhaler. Associated signs and symptoms: Pertinent positives: This patient does not have any pertinent positive signs or symptoms associated with shortness of breath. Pertinent negatives: chest pain, productive cough, fever, hemoptysis. Severity of symptoms: At their worst the symptoms were moderate in the emergency department the symptoms are unchanged. The patient has experienced similar episodes in the past. Pt reports sob since last night, has asthma, started with nasal congestion, then became more anxious today, now feels like having a panic attack. No fever. . Historical: - Allergies: 08:58 PENICILLINS; me1 - Home Meds: 08:58 Albuterol Inhl [Active]; me1 - PMHx: 08:58 Hypertensive disorder; me1 - PSHx: 08:58 None; me1 - Immunization history:: Adult Immunizations up to date. - Social history:: Smoking status: Patient denies any tobacco usage or history of. - Family history:: not pertinent. - Hospitalizations: : No recent hospitalization is reported. ROS: 08:59 Constitutional: Negative for fever, chills, and weight loss, Cardiovascular: Negative rn for chest pain, palpitations, and edema, Respiratory: + sob Abdomen/GI: Negative for abdominal pain, nausea, vomiting, diarrhea, and constipation, MS/Extremity: Negative for injury and deformity, Skin: Negative for injury, rash, and discoloration, Neuro: Negative for headache, weakness, numbness, tingling, and seizure. Exam: 08:59 Constitutional: This is a well developed, well nourished patient who is awake, alert, rn appears anxious Head/Face: Normocephalic, atraumatic. ENT: No stridor Cardiovascular: Regular rate and rhythm. No pulse deficits. Respiratory: + mild tachypnea with mild wheezing bilaterally Skin: Warm, dry MS/ Extremity: Pulses equal, no cyanosis. Neuro: Awake and alert, GCS 15 Vital Signs: 08:56 BP 163 / 101; Pulse 99; Resp 17; Temp 98.4(O); Pulse Ox 100% on R/A; Weight 108.86 kg; me1 Height 5 ft. 11 in. ; Pain 0/10; 09:11 BP 152 / 109; Pulse 105; Resp 18; Pulse Ox 100% on R/A; ld1 10:26 BP 161 / 92; Pulse 98; Resp 18; Pulse Ox 100% on R/A; ld1 08:56 Body Mass Index 33.47 (108.86 kg, 180.34 cm) me1 08:56 Pain Scale: Adult me1 MDM: 08:38 Patient medically screened. rn 10:04 Differential diagnosis: asthma, Bronchitis pneumonia, Pneumothorax covid, flu. Data rn reviewed: vital signs, nurses notes, lab test result(s), radiologic studies, plain films, and as a result, I will discharge patient. Counseling: I had a detailed discussion with the patient and/or guardian regarding: the historical points, exam findings, and any diagnostic results supporting the discharge/admit diagnosis, lab results, radiology results, the need for outpatient follow up, to return to the emergency department if symptoms worsen or persist or if there are any questions or concerns that arise at home. Response to treatment: the patient's symptoms have markedly improved after treatment, and as a result, I will discharge patient. Special discussion: I discussed with the patient/guardian in detail that at this point there is no indication for admission to the hospital. It is understood, however, that if the symptoms persist or worsen the patient needs to return immediately for re-evaluation. Based on the history and exam findings, there is no indication for further emergent testing or inpatient evaluation. I discussed with the patient/guardian the need to see the primary care provider for further evaluation of the symptoms. 04/20 08:54 Order name: SARS RAPID; Complete Time: 09:52 rn 04/20 08:54 Order name: Flu; Complete Time: 10:01 rn 04/20 08:54 Order name: Strep rn 04/20 08:54 Order name: XRAY Chest (1 view); Complete Time: 10:01 rn Administered Medications: 09:09 Drug: predniSONE PO 60 mg Route: PO; vg1 09:11 Drug: Levalbuterol Inhalation 1.25 mg Route: Inhalation; ld1 Disposition Summary: 04/20/23 10:05 Discharge Ordered Location: Home rn Problem: new rn Symptoms: have improved rn Condition: Stable rn Diagnosis - SARS-associated coronavirus as the cause of diseases classified elsewhere rn - Mild intermittent asthma with (acute) exacerbation rn Followup: rn - With: Private Physician - When: As needed - Reason: Recheck today's complaints, Re-evaluation by your physician Discharge Instructions: - Discharge Summary Sheet rn - COVID-19 rn - 10 Things You Can Do to Manage Your COVID-19 Symptoms at Home - [facility] (04/03/2021) rn - Viral Illness, Adult rn Forms: - Work release form bd - Medication Reconciliation Form rn - Thank You Letter rn - Antibiotic pattern duplicator - Prescription Opioid Use rn - Patient Portal Instructions rn Prescriptions: - albuterol sulfate 90 mcg/actuation Inhalation HFA Aerosol Inhaler - inhale 2 inhalation by INHALATION route every 4 to 6 hours as needed for rn shortness of breath or wheezing; 1 unit; Refills: 0, Product Selection Permitted - Prednisone 20 mg Oral Tablet - take 3 tablets by ORAL route once daily for 5 days; 15 tablet; Refills: 0, rn Product Selection Permitted Signatures: Dispatcher [employer] EDChristiano Roper MD MD rn Garcia, Victoria RN RN vg1 Jerilyn Iglesias RN RN ld1 Katarina Bui, RN RN me1 Corrections: (The following items were deleted from the chart) 08:59 08:58 PMHx: Asthma; me1 me1
--- NOTE | 2023-04-20 10:06 | ER ---
Nurse's Notes [facility] Name: Lew Castañeda Age: 32 yrs Sex: Male : 1990 Arrival Date: 04/20/2023 Time: 08:35 Bed 20 Private MD: Diagnosis: SARS-associated coronavirus as the cause of diseases classified elsewhere;Mild intermittent asthma with (acute) exacerbation Presentation: 04/20 08:56 Chief complaint: Patient states: last night he developed some nasal congestion and sob me1 that was not resolved by his inhaler or nebulizer. Reports hx of asthma. Coronavirus screen: Vaccine status:. Ebola Screen: No symptoms or risks identified at this time. Initial Sepsis Screen: Does the patient meet any 2 criteria? No. Patient's initial sepsis screen is negative. Does the patient have a suspected source of infection? No. Patient's initial sepsis screen is negative. Risk Assessment: Do you want to hurt yourself or someone else? Patient reports no desire to harm self or others. Onset of symptoms was April 19, 2023. 08:56 Method Of Arrival: Ambulatory me1 08:56 Acuity: ROGER 4 me1 Triage Assessment: 08:58 General: Appears comfortable, Behavior is cooperative, appropriate for age, restless. me1 Pain: Denies pain. Neuro: Level of Consciousness is awake, alert, obeys commands, Oriented to person, place, time, situation. Cardiovascular: Capillary refill < 3 seconds Patient's skin is warm and dry. Respiratory: Reports shortness of breath since last night. Respiratory effort is even, unlabored, Respiratory pattern is regular, symmetrical. 10:27 Respiratory: the patient has mild shortness of breath. ld1 Historical: - Allergies: 08:58 PENICILLINS; me1 - Home Meds: 08:58 Albuterol Inhl [Active]; me1 - PMHx: 08:58 Hypertensive disorder; me1 - PSHx: 08:58 None; me1 - Immunization history:: Adult Immunizations up to date. - Social history:: Smoking status: Patient denies any tobacco usage or history of. - Family history:: not pertinent. - Hospitalizations: : No recent hospitalization is reported. Screenin:11 [facility] ED Fall Risk Assessment (Adult) History of falling in the last 3 months, ld1 including since admission No falls in past 3 months (0 pts). Abuse screen: Denies threats or abuse. Denies injuries from another. Nutritional screening: No deficits noted. Tuberculosis screening: No symptoms or risk factors identified. Assessment: 09:11 General: Appears in no apparent distress. comfortable, Behavior is calm, cooperative, ld1 appropriate for age. Pain: Denies pain. Neuro: Level of Consciousness is awake, alert, obeys commands, Oriented to person, place, time, situation. Cardiovascular: Capillary refill < 3 seconds Patient's skin is warm and dry. Rhythm is sinus rhythm. Respiratory: Reports shortness of breath at rest on exertion Airway is patent Respiratory effort is even, unlabored, Breath sounds are clear bilaterally. GI: Abdomen is round non-distended. : No signs and/or symptoms were reported regarding the genitourinary system. EENT: No signs and/or symptoms were reported regarding the EENT system. Derm: No signs and/or symptoms reported regarding the dermatologic system. Musculoskeletal: No signs and/or symptoms reported regarding the musculoskeletal system. 10:26 Reassessment: Patient appears in no apparent distress at this time. No changes from ld1 previously documented assessment. Patient and/or family updated on plan of care and expected duration. Pain level reassessed. Patient is alert, oriented x 3, equal unlabored respirations, skin warm/dry/pink. Vital Signs: 08:56 BP 163 / 101; Pulse 99; Resp 17; Temp 98.4(O); Pulse Ox 100% on R/A; Weight 108.86 kg; me1 Height 5 ft. 11 in. ; Pain 0/10; 09:11 BP 152 / 109; Pulse 105; Resp 18; Pulse Ox 100% on R/A; ld1 10:26 BP 161 / 92; Pulse 98; Resp 18; Pulse Ox 100% on R/A; ld1 08:56 Body Mass Index 33.47 (108.86 kg, 180.34 cm) me1 08:56 Pain Scale: Adult dc1 ED Course: 08:37 Patient arrived in ED. mr 08:38 Christiano Boyer MD is Attending Physician. rn 08:50 Jerilyn Iglesias, LASHA is Primary Nurse. ld1 08:58 Triage completed. me1 09:11 Strep Sent. ld1 09:11 Flu Sent. ld1 09:11 SARS RAPID Sent. ld1 09:11 No provider procedures requiring assistance completed. ld1 09:11 Patient has correct armband on for positive identification. Placed in gown. Bed in low ld1 position. Call light in reach. Side rails up X2. quality assurance monitor final on. Pulse ox on. NIBP on. Door closed. Noise minimized. Warm blanket given. 09:49 XRAY Chest (1 view) In Process Unspecified. EDMS 10:26 Patient did not have IV access during this emergency room visit. ld1 10:26 Arm band placed on right wrist. ld1 Administered Medications: 09:09 Drug: predniSONE PO 60 mg Route: PO; vg1 09:11 Drug: Levalbuterol Inhalation 1.25 mg Route: Inhalation; ld1 Medication: 09: VIS not applicable for this client. ld1 Outcome: 10:05 Discharge ordered by . rn 10:26 Discharged to home ambulatory. ld1 10:26 Condition: stable 10:26 Discharge instructions given to patient, Instructed on discharge instructions, follow up and referral plans. medication usage, Demonstrated understanding of instructions, follow-up care, medications, Prescriptions given X 2. 10:27 Patient left the ED. ld1 Signatures: Dispatcher [employer] [facility] WheatXiao Roman, MD MD rn Garcia, Victoria, RN RN vg1 Jerilyn Iglesias, LASHA RN ld1 Katarina Bui, LASHA RN me1 Corrections: (The following items were deleted from the chart) 08:59 08:58 PMHx: Asthma; me1 me1
[2023-04-20 10:38] VITALS: TEMP 98.4; O2SAT 100
[2023-04-20 10:42] VITALS: BP 161/92
== END 2023-04-20 10:27 | disposition home or self-care (01) ==
LOC: ER 08:35
DX: U07.1 COVID-19 (principal); J45.21 Mild intermittent asthma with (acute) exacerbation; I10 Essential (primary) hypertension; Z88.0 Allergy status to penicillin
CPT/HCPCS: 36415; 87804 ×2; 71045; 87811; J7512; J7614